=== PATIENT | male | born 1965 | race Caucasian/White ===

== ENCOUNTER 2017-02-09 14:44 | Inpatient (IN) | payer BC ==
[~2017-02-09] VITALS: Ht 177.8 cm; Wt 58.1 kg
--- NOTE | ~2017-02-09 | EKG ---
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
[2017-02-09 14:46] VITALS: BP 110/82
[2017-02-09 15:20] LABS: ABSOLUTE NEUTROPHILS 6.5 thou/uL (1.4-8.2); BASOPHILS 0.4 % (0.0-2.0); EOSINOPHILS 0.3 % (0.0-3.0); HEMATOCRIT 43.2 % (42.0-52.0); HEMOGLOBIN 14.9 gm/dL (14.0-18.0); LYMPHOCYTES 10.7 % (24.0-44.0); MCH 35.6 pg (26.0-34.0); MCHC 34.6 g/dL (28.0-37.0); MCV 102.8 fL (80.0-100.0); MONOCYTES 7.6 % (1.0-8.0); PLATELET COUNT 254 thou/uL (150-400); RDW 13.4 % (10.5-14.5)
[2017-02-09 15:22] LABS: MANUAL DIFF NO
[2017-02-09 15:33] LABS: CALCIUM 9.5 mg/dL (8.5-10.1); CREATININE 0.9 mg/dL (0.7-1.3); POTASSIUM 3.8 mmol/L (3.5-5.1)
[2017-02-09 15:37] LABS: ALBUMIN 3.6 g/dL (3.4-5.0); DIRECT BILIRUBIN 0.3 mg/dL (<0.1-0.3); TOTAL BILIRUBIN 1.1 mg/dL (<0.1-1.0); TOTAL PROTEIN 6.9 g/dL (6.4-8.2)
[2017-02-09 19:14] VITALS: BP 109/75
[2017-02-10] VITALS: BP 108/73
[2017-02-10 04:22] VITALS: BP 112/71
[2017-02-10 05:21] LABS: HEMATOCRIT 37.4 % (42.0-52.0); MCH 35.8 pg (26.0-34.0); MCHC 34.9 g/dL (28.0-37.0); MCV 102.7 fL (80.0-100.0); RBC 3.64 mil/uL (4.50-6.00); RDW 12.8 % (10.5-14.5); WBC 6.9 thou/uL (4.0-11.0)
[2017-02-10 05:34] LABS: ALBUMIN 2.9 g/dL (3.4-5.0); CALCIUM 8.3 mg/dL (8.5-10.1); CREATININE 0.6 mg/dL (0.7-1.3); POTASSIUM 3.5 mmol/L (3.5-5.1); TOTAL BILIRUBIN 1.7 mg/dL (<0.1-1.0); TOTAL PROTEIN 5.5 g/dL (6.4-8.2)
[2017-02-10 07:47] VITALS: BP 131/86
[2017-02-10 11:17] LABS: URINE BILIRUBIN NEGATIVE (Negative); URINE BLOOD NEGATIVE (Negative); URINE COLOR YELLOW; URINE GLUCOSE-RANDOM* NEGATIVE (Negative); URINE KETONES NEGATIVE (Negative); URINE NITRITE NEGATIVE (Negative); URINE PROTEIN (DIPSTICK) NEGATIVE (Negative); URINE UROBILINOGEN 0.2 E.U./dl (0.2-1.0)
[2017-02-10 11:24] LABS: AMP/METHAMP Negative (Negative); BARBITURATES Negative (Negative); BENZODIAZEPINES Negative (Negative); COCAINE Negative (Negative); METHADONE Negative (Negative); OPIATES POSITIVE (Negative); PCP Negative (Negative); THC POSITIVE (Negative)
[2017-02-10 11:44] VITALS: BP 104/86
[2017-02-10 16:01] VITALS: BP 113/73
[2017-02-10 19:35] VITALS: BP 103/69
[2017-02-11 03:40] VITALS: BP 109/65
[2017-02-11 04:56] LABS: HEMATOCRIT 34.3 % (42.0-52.0); HEMOGLOBIN 12.1 gm/dL (14.0-18.0); MCH 36.3 pg (26.0-34.0); MCHC 35.4 g/dL (28.0-37.0); MCV 102.8 fL (80.0-100.0); RBC 3.33 mil/uL (4.50-6.00); RDW 12.8 % (10.5-14.5); WBC 5.8 thou/uL (4.0-11.0)
[2017-02-11 05:21] LABS: CALCIUM 8.4 mg/dL (8.5-10.1); CREATININE 0.8 mg/dL (0.7-1.3); POTASSIUM 3.5 mmol/L (3.5-5.1)
[2017-02-11 07:34] VITALS: BP 134/77
[2017-02-11 12:27] VITALS: BP 123/78
[2017-02-11 15:30] VITALS: BP 119/81
[2017-02-11 20:00] VITALS: BP 139/85
[2017-02-12 04:00] VITALS: BP 131/78
[2017-02-12 07:27] VITALS: BP 119/81
[2017-02-12 11:43] VITALS: BP 126/86
[2017-02-12 15:07] VITALS: BP 112/74
[2017-02-12 19:29] VITALS: BP 111/78
[2017-02-13 03:20] VITALS: BP 143/86
[2017-02-13 07:45] VITALS: BP 108/70
[2017-02-13] MEDS ORDERED: CENTRUM SILVER1 EAC2 PO (13:30)
[2017-02-13] MEDS ORDERED: VITAMIN B-1100 M2 PO (13:30)
[2017-02-13 13:42] VITALS: BP 108/70
== END 2017-02-13 14:11 | disposition home or self-care (01) | DRG 897 ==
LOC: ER 14:44 → EROBS 18:17 → 4W 18:17
PROVIDERS: Emergency Medicine; Hospitalist
DX: F10.239 Alcohol dependence with withdrawal, unspecified (principal); E87.2 Acidosis; K70.10 Alcoholic hepatitis without ascites; F11.23 Opioid dependence with withdrawal; F17.210 Nicotine dependence, cigarettes, uncomplicated; K46.9 Unspecified abdominal hernia without obstruction or gangrene; Y90.0 Blood alcohol level of less than 20 mg/100 ml; Z88.0 Allergy status to penicillin; Z79.899 Other long term (current) drug therapy
CPT/HCPCS: 10045

== ENCOUNTER 2019-02-07 21:24 | Emergency (ER) | payer BC ==
[~2019-02-07] VITALS: Ht 177.8 cm; Wt 65.8 kg
[~2019-02-07 21:24] MED LIST: ATIVAN0.5 MG PO; CENTRUM SILVER1 EAC2 PO; CLONAZEPAM 0.50.5 M1 PO; LEXAPRO 10 MG T10 M2 PO; MAG6464 MG PO; NICOTINE TRANSD14 M1 TRANSDERM; PEPCID20 MG PO; VITAMIN B-1100 M2 PO
[2019-02-07 21:48] LABS: HEMATOCRIT 35.3 % (42.0-52.0); HEMOGLOBIN 11.8 gm/dL (14.0-18.0); MCH 29.8 pg (26.0-34.0); MCHC 33.3 g/dL (28.0-37.0); MCV 89.5 fL (80.0-100.0); PLATELET COUNT 417 thou/uL (150-400); RBC 3.95 mil/uL (4.50-6.00); WBC 9.2 thou/uL (4.0-11.0)
[2019-02-07 21:51] LABS: CALCIUM 9.7 mg/dL (8.5-10.1); CREATININE 1.3 mg/dL (0.7-1.3); POTASSIUM 3.8 mmol/L (3.5-5.1)
[2019-02-07 21:58] LABS: TOTAL BILIRUBIN 0.3 mg/dL (<0.1-1.0); TOTAL PROTEIN 7.2 g/dL (6.4-8.2)
[2019-02-07 22:43] LABS: ABSOLUTE NEUTROPHILS 5.4 thou/uL (1.4-8.2); ATYPICAL LYMPHS 6 %; LARGE PLATELETS RARE
[2019-02-07 23:27] LABS: URINE BILIRUBIN NEGATIVE (Negative); URINE BLOOD 2+ (Negative); URINE CLARITY CLEAR; URINE COLOR YELLOW; URINE GLUCOSE-RANDOM* NEGATIVE (Negative); URINE KETONES NEGATIVE (Negative); URINE LEUKOCYTES-REFLEX NEGATIVE (Negative); URINE NITRITE-REFLEX NEGATIVE (Negative); URINE PROTEIN (DIPSTICK) NEGATIVE (Negative); URINE UROBILINOGEN 0.2 E.U./dl (0.2-1.0)
[2019-02-07 23:36] LABS: BACTERIA-REFLEX 1-9 Few /HPF (None Seen); CASTS None Seen /LPF (None Seen); CRYSTALS None Seen /LPF (None Seen); MUCUS 0-3 Light strn/LPF (None Seen); SQUAMOUS None Seen /LPF (0-3); SSA (PROTEIN CONFIRMATORY) NEGATIVE (Negative); URINE WBC-REFLEX 0-5 Rare /HPF (0-5)
[2019-02-08] MEDS ORDERED: SENNA-DOCUSATE1 EAC1 PO (00:48)
[2019-02-08] MEDS ORDERED: NORCO 5-325 TA1 EACH PO (00:48)
[2019-02-08 01:25] VITALS: BP 132/62
--- NOTE | 2019-02-08 09:36 | EKG ---
[address] [address] ELECTROCARDIOGRAM REPORT Name: LUIS UNDERWOOD [id number] ������������������ Admission: 02/07/19 ������������������ Attend Phys: Discharge: 02/08/19 ������������������ Date of : 63 Report #: [id number] ����������������������������������������������������������������� [id number] THIS REPORT FOR: //name// 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 : 1965 Requested By: Santiago Bella Order Number: [id number] MD: Brad Sanders Measurements Intervals [place] Rate: 60 P: 8 [place]: 166 QRS: 5 QRSD: 87 T: 8 QT: 424 QTc: 424 Interpretive Statements Sinus rhythm Compared to ECG 05/19/2018 12:42:38 Sinus tachycardia no longer present Prolonged QT interval no longer present Electronically Signed On 02-08-2019 9:35:56 CDT by Brad Sanders [email or web address] ��������������������������������������������� <ELECTRONICALLY SIGNED> ���������������������������������������� By: Brad Sanders MD ��������������������������������������������� 02/08/19 0935 [id number] Brad Sanders MD /[email or web address]
== END 2019-02-08 01:34 | disposition home or self-care (01) ==
LOC: ER 21:24
PROVIDERS: Physician Assistant
DX: N20.0 Calculus of kidney (principal); F17.210 Nicotine dependence, cigarettes, uncomplicated; M19.90 Unspecified osteoarthritis, unspecified site; F32.9 Major depressive disorder, single episode, unspecified; F41.9 Anxiety disorder, unspecified; I10 Essential (primary) hypertension; M54.9 Dorsalgia, unspecified; G89.29 Other chronic pain; Z88.0 Allergy status to penicillin